=== PATIENT | male | born 1985 | race Caucasian/White ===

== ENCOUNTER 2022-11-01 18:02 | Emergency (ER) | payer SELFPAY ==
[2022-11-01 18:26] VITALS: BP 146/79; PULSE 69; RESP 17; TEMP 97.8; BMI 32.3
[2022-11-01] MEDS ORDERED: LIDOCAINE HCL/PF 1% SDV 5ML VIAL ONE (21:00)
[2022-11-01] MEDS ORDERED: cefTRIAXone SODIUM 1 GM VIAL ONE (21:01)
[2022-11-01] MEDS ORDERED: DIPHTH,PERTUSS(ACELL),TET 0.5 ML DISP.SYRIN IM ONE ×2 (21:09→21:11)
== END 2022-11-01 21:33 | disposition home or self-care (01) ==
LOC: JERFT 18:02
PROC: 0HQGXZZ Repair Left Hand Skin, External Approach (ICD-10-PCS; principal; 2022-11-01)
PROC: 3E033GC Introduction of Other Therapeutic Substance into Peripheral Vein, Percutaneous Approach (ICD-10-PCS; 2022-11-01)
PROC: 3E0234Z Introduction of Serum, Toxoid and Vaccine into Muscle, Percutaneous Approach (ICD-10-PCS; 2022-11-01)
DX: S61.512A Laceration without foreign body of left wrist, initial encounter (principal); X58.XXXA Exposure to other specified factors, initial encounter
CPT/HCPCS: 90715; 99284-25